=== PATIENT | female | born 1975 | race Asian ===

== ENCOUNTER 2025-05-13 19:57 | Emergency (ER) | payer SELFPAY ==
[2025-05-13 20:10] VITALS: BP 106/74; PULSE 82; RESP 16; TEMP 36.3; O2SAT 100
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
== END 2025-05-13 21:09 | disposition home or self-care (01) ==
DX: S80.211A Abrasion, right knee, initial encounter (principal); V19.9XXA Pedal cyclist (driver) (passenger) injured in unspecified traffic accident, initial encounter; Y93.55 Activity, bike riding
CPT/HCPCS: 99213; G0463

== ENCOUNTER 2025-05-31 17:14 | Emergency (ER) | payer SELFPAY ==
--- NOTE | 2025-05-31 17:36 | ED_ITS ---
HPI - Wound/Laceration General Chief Complaint: Wound/Laceration Stated Complaint: PAIN Time Seen by Provider: 05/31/25 17:16 Source: patient and freelance interpreter/translator Mode of arrival: ambulatory Limitations: language barrier History of Present Illness HPI narrative: Nataliia is a 50 year old female patient presenting to the clinic today with c/o 3 small open wound to the right knee s/p fall. Patient reports she fell and inj ured her right knee 1 week ago. Was seen in the clinic- offered x-ray and tdap and she declined. Is return to the clinic as she is concerned about the bruising and wounds to her anterior right knee. States they are drainage and she thinks they are infected. Is concerned about the bruising going down her leg and behind her knee. She is able to walk/bear weight on the knee and is denying any pain. Related Data Allergies Allergy/AdvReac Type Severity Reaction Status Date / Time No Known Allergies Allergy Verified 05/13/25 20:29 Review of Systems Review of Systems: Pertinent positives per HPI. Patient denies any fever, chills, rash, headache, visual changes, dizziness, cough, runny nose, sore throat, shortness of breath, chest pain, palpitations, nausea, vomiting, diarrhea, constipation, abdominal pain, or any urinary issues. PMFSH Comments At the time of my signature, I reviewed and agree with the nursing past medical, surgical, social, and family history. There is no relevant family history pertinent to the patient complaint. Exam Narrative: General: Well-developed, well nourished, in no apparent distress Head: Normocephalic, atraumatic. Cardio: Regular rate and rhythm, s1 and s2 normal, no murmur appreciated. Resp: Clear to auscultation bilaterally, no rhonchi, rales, wheezing or rubs. Musculoskeletal: No deformity, 3 open wounds largest measuring 1 cm and the other two were 0.25cm, no surrounding redness but she does have some nonpitting edema over the anterior knee and the lower extremity with old ecchymosis, serous discharge from the wounds, wound with granulation tissue, mild-tender to palpation over the right anterior knee, no tenderness palpation over her calf, negative Homans sign, grossly normal range of motion, muscle strength strong and equal, peripheral pulse strong, no edema, no cyanosis, normal gait and station Const: Other: er calf Course Course Emergency Course: Portions of this record may have been created with voice recognition software. Level of Care: Express Care Visit Vital Signs Vital signs: Vital Signs Temperature 36.3 C L 05/31/25 17:46 Pulse Rate 75 05/31/25 17:46 Respiratory Rate 16 05/31/25 17:46 Blood Pressure 114/77 05/31/25 17:46 Pulse Oximetry 100 05/31/25 17:46 Temperature 36.3 C L 05/31/25 17:46 Pulse Rate 75 05/31/25 17:46 Respiratory Rate 16 05/31/25 17:46 Blood Pressure 114/77 05/31/25 17:46 Pulse Oximetry 100 05/31/25 17:46 Vital signs reviewed MDM - Wound/Laceration MDM Narrative Medical decision making narrative: At the time of visit patient is resting comfortably on the exam table. Patient appears to be nontoxic. C/o 3 small open wound to the right knee s/p fall. Patient reports she fell and injured her right knee 1 week ago. Was seen in the clinic- offered x-ray and tdap and she declined. Is return to the clinic as she is concerned about the bruising and wounds to her anterior right knee. States they are drainage and she thinks they are infected. Is concerned about the bruising going down her leg and behind her knee. She is able to walk/bear weight on the knee and is denying any pain. On exam patient has 3 open wounds largest measuring 1 cm and the other two were 0.25cm, no surrounding redness but she does have some nonpitting edema over the anterior knee and the lower extremity with old ecchymosis. [place] freelance interpreter/translator was used to gather information, offer/recommend treatment options, and discharge instructions. Offer tetanus shot and knee x-ray and patient declined this time. Patient is requesting a oral antibiotic as she thinks the wounds are infection. Reassured patient that her wounds do not appear to be infected but I am willing to give her a prescription for mupirocin cream. Jean Carlos wrap and dressing was ordered. Plan: Patient has open wound with granulation tissue to the right anterior knee-appears to be will healing but she is concerned about infection. She is requesting a cream to put on her knee. Will send in prescription for mupirocin cream. Offered tetanus and x-ray again and she declined. Discharge instructions were reviewed with the patient using the [place] freelance interpreter/translator. Supportive measures were discussed with the patient and they voiced understanding discharge instructions and agrees to treatment plan. Return precautions reviewed Differential Diagnosis Differential diagnosis: Likely laceration, abscess, abrasion, avulsion of skin and other (Knee contusion, ecchymosis, patellar fracture, tibia fracture, femur fracture, knee sprain) Discharge Plan Discharge Clinical Impression: Open wound of knee Qualifiers: Encounter type: initial encounter Laterality: right Qualified Code(s): S81.001A - Unspecified open wound, right knee, initial encounter Traumatic ecchymosis of right knee Qualifiers: Encounter type: initial encounter Qualified Code(s): S80.01XA - Contusion of right knee, initial encounter Patient Disposition: Home Condition: Stable Instructions: Antibiotic Form, Ecchymosis (ED), Acute Wounds (ED) Additional Instructions: H?m nay b?n ?? t? ch?i ch?p X-geni v? ti?m ph?ng u?n v?n t?i ph?ng kh?m. Ngh? ng?i, ch??m ?? v? k? slade ch?n ph?i. Gi? v?t th??ng s?ch s? v? kh? r?o. C? th? r?a v?t th??ng 2 l?n m?i ng?y b?ng x? ph?ng v? n??c, jose ?? th?m kh?. B?i erick mupirocin 2 l?n m?i ng?y liliana 7 ng?y. V?t b?m t?m s? t? kh?i. Jose d?i c?c d?u hi?u v? tri?u ch?ng rena?m tr?ng - t?ng ??, n?i v?t, s?ng, ch?y m? ho?c ?au rena?u h?n. T?i kh?m jose ch? ??nh c?a b?c s? ch?m s?c s?c kh?e ban ??u. You declined an x-ray and tetanus shot in the clinic today. Rest, ice, and elevate your right leg Keep wound clean and dry May wash wound 2 times daily using soap and water and pat dry Apply mupirocin cream twice daily for 7 days Bruising will resolve on its own Watch for signs and symptoms of infection-increase in redness, streaking, swelling, purulent discharge, or increase in pain. Follow up with a primary care provider as discussed. Patient Language: Nicaraguan Prescriptions: New mupirocin [Centany] 2 % ointment 1 applic topical BID 7 Days Qty: 22 0RF No Action cephalexin 500 mg capsule 500 mg PO Q6H 7 Days Qty: 28 0RF Follow-up/Referrals: PHYSICIAN,FORKLIFT OPERATOR [Primary Care Provider, Internal Medicine] Time of Disposition: 17:42 Quality NIHSS Nursing Documentation ED NIHSS nursing documentation: reviewed/agree
[2025-05-31 17:46] VITALS: BP 114/77; PULSE 75; RESP 16; TEMP 36.3; O2SAT 100
== END 2025-05-31 17:51 | disposition home or self-care (01) ==
PROVIDERS: Emergency Provider Nurse Practitioner Family
DX: S81.001D Unspecified open wound, right knee, subsequent encounter (principal); W19.XXXD Unspecified fall, subsequent encounter; S80.01XD Contusion of right knee, subsequent encounter
CPT/HCPCS: 99213; G0463